=== PATIENT | female | born 1995 | race Caucasian/White ===

== ENCOUNTER 2019-02-01 16:39 | Inpatient (IN) | payer BC ==
[2019-02-01] MEDS ORDERED: Zolpidem Tartrate 5 MG TAB PO PRN (17:57)
[2019-02-01] MEDS ORDERED: HYDROcodone/Acetaminophen 5/325 mg Tablet PO PRN ×2 (17:57)
[2019-02-01] MEDS ORDERED: Butorphanol Tartrate 1 MG/ML VIAL SLOW IVP PRN (17:57)
[2019-02-01] MEDS ORDERED: Promethazine HCl 25 MG/ML VIAL IM PRN (17:57)
[2019-02-01] MEDS ORDERED: Acetaminophen 500 MG TAB PO PRN (17:57)
[2019-02-01] MEDS ORDERED: Meperidine HCl/PF 25 MG/ML VIAL IM/IV PRN (17:57)
[2019-02-01] MEDS ORDERED: Ondansetron PF 4 MG/2 ML Vial IVP PRN (17:57)
[2019-02-01] MEDS ORDERED: NS / Oxytocin 40 units/1000ml 1,000 ML IV PRN (17:57)
[2019-02-01] MEDS ORDERED: Ibuprofen 800 MG TAB PO PRN (17:57)
[2019-02-01] MEDS ORDERED: Lidocaine 1% (PF) 30 ML VIAL SC PRN (17:57)
--- NOTE | 2019-02-01 18:03 | PDOC.LDHP ---
Labor and Delivery H&P Chief complaint: contractions HPI: 23 yo WF G1 presents c/o regular UCs since 2am. Denies bleeding or SROM. Current gestational age (weeks): 41 Due date: 01/24/19 Dating criteria: last menstrual period Grav: 1 Para: 0 OB History Details: PNC with Allie Tapia w/o complications Current complications: none Abnormal US findings: No Past Medical History: none Current medications: pre-nilda vitamins Previous surgical history: none Allergies/Adverse Reactions: Allergies Allergy/AdvReac Type Severity Reaction Status Date / Time No Known Allergies Allergy Verified 02/01/19 17:27 Social history: none - Physical Exam Vital signs reviewed and normal: yes General: breathing through contractions Heart: RRR Lungs: CTAB Abdomen: gravid Extremeties: trace edema FHT: category 1 Fuig contractions every: UCs q 2-4 mins. - Vaginal Exam cm dilated: 2 Effacement: 75% Station: -1 - OB Labs GBS: negative - Assessment L&D Assessment: term patient in labor - Plan Plan: admit to L&D, informed consent obtained (wants low intervention. Allie Tapia notified of admit)
[2019-02-01 18:41] LABS: Mean Corpuscular HGB CONC 32.9 g/dL (32.0-36.0); Mean Corpuscular Hemoglobin 28.1 pg (27.0-31.0); Mean Corpuscular Volume 85.3 fL (78.0-98.0); Platelet Count 190 thou/uL (130-400); Red Blood Cell (RBC) Count 4.29 mill/uL (4.20-5.40); White Blood Cell (WBC) Count 11.7 thou/uL (4.8-10.8)
[2019-02-01] MEDS: Lactated Ringer's 1,000 ML IV SCH (19:00)
[2019-02-01] MEDS ORDERED: Bupivacaine/Epinephrine 0.25% 30 ML VIAL ONE (19:22)
[2019-02-01 19:23] LABS: HBSAg Index 0.36 S/CO (0-0.99); Hep B Surf Ag Non-Reactive S/CO (NonReactive); Syphilis Antibody Nonreactive (Nonreactive); Syphilis Antibody Index 0.04 S/CO (<1.00 Non-Reactive)
[2019-02-01 20:07] VITALS: BMI 27.5
[2019-02-01] MEDS ORDERED: Fentanyl 4 mcg/Bup 0.1% Cadd 100 ML ONE (23:44)
[2019-02-02] MEDS: Lactated Ringer's 1,000 ML IV SCH (00:05)
[2019-02-02] MEDS ORDERED: Promethazine HCl 25 MG/ML VIAL IM PRN (00:19)
[2019-02-02] MEDS ORDERED: Ondansetron PF 4 MG/2 ML Vial IVP PRN ×2 (00:19→10:12)
[2019-02-02] MEDS ORDERED: ePHEDrine/0.9% NaCl/PF SYRINGE 50 mg/10 ml SLOW IVP PRN (00:19)
[2019-02-02] MEDS ORDERED: Naloxone HCl 0.4 mg/ml Vial IVP PRN ×2 (00:19)
[2019-02-02] MEDS ORDERED: Acetaminophen 325 MG TAB PO PRN (00:19)
[2019-02-02] MEDS ORDERED: diphenhydrAMINE 50 MG/ML VIAL IVP PRN (00:19)
[2019-02-02] MEDS ORDERED: Lactated Ringer's 500 ML IV PRN (00:19)
[2019-02-02] MEDS ORDERED: Fentanyl 4 mcg/Bupivacaine 0.1% Cassette 100 ML EPIDURAL SCH (00:30)
[2019-02-02] MEDS ORDERED: Communication Order-Pharmacy FS SCH (00:30)
[2019-02-02] MEDS ORDERED: Terbutaline Sulfate 1 MG/ML VIAL SC SCH (04:05)
[2019-02-02] MEDS ORDERED: Terbutaline Sulfate 1 MG/ML VIAL ONE (04:07)
--- NOTE | 2019-02-02 05:52 | PDOC.LDPN ---
Labor & Delivery Progress Note - Subjective Subjective: comfortable - Objective Abnormal vital signs: Temp 100.1, 111bpm after terbutaline General: resting Uterine fundus: non tender Dilation: 7 Effacement: 100% Station: -1 FHT: category 2 - Assessment (1) 41 weeks gestation of Code(s): Z3A.41 - 41 WEEKS GESTATION OF Current Visit: Yes Status : Acute (2) Primigravida Code(s): Z34.00 - ENCNTR FOR SUPRVSN OF NORMAL FIRST , UNSP TRIMESTER Current Visit: Yes Status: Acute -: RN called at 0400 to review strip from home. Recurrent late decels noted. Verbal order to give 0.25 SQ terbutaline. Arrived to hospital at 0430. status is improved, 140 baseline, moderate variability, + Accels. Proceeded with position changes used to encourage rotation and decent. Will recheck cervix at 0700 or as indicated.
[2019-02-02] MEDS ORDERED: NS w/ Oxytocin 10 units 500 ML IV SCH (07:15)
[2019-02-02] MEDS ORDERED: Fentanyl 4 mcg/Bup 0.1% Cadd 100 ML ONE (07:23)
[2019-02-02] MEDS ORDERED: NS / Oxytocin 40 units/1000ml 1,000 ML ONE (08:52)
[2019-02-02] MEDS ORDERED: Lidocaine 1% (PF) 30 ML VIAL ONE (08:52)
[2019-02-02 09:40] LABS: Actual Bicarbonate (HCO3a) 23.6 mEq/L (22-28); Base Excess (BEa) -7.8 mEq/L (-2.0 to +3.0)
--- NOTE | 2019-02-02 10:02 | PDOC.OPDEL ---
OB Operative/Delivery Note Delivery Dr/Surgeon: Mike Tapia CNM Assist: Dr. May at bedside Pre-Delivery Diagnosis: active labor, other (41 weks gestation catergory 2 heart rate tracing) Procedure/Post Delivery Dx: spontaneous vaginal delivery Weeks gestation: 41 Anesthesia: epidural - Findings A Sex: female Weight: 7 lb 5 oz - 1 min: 8 - 5 min: 9 - Additional Findings/Plan Placenta delivered: spontaneous Repaired Obstetrical Laceration: 2nd degree Estimated blood loss: 250mL see nurse note for QBL Compilations/Other Findings: Deep variable decels prior to delivery. NICU at bedside, OB hospitalist at bedside compound delivery 2nd laceration Cord gas collected. 7.115pH arterial. Post delivery plan: routine recovery
[2019-02-02] MEDS ORDERED: Milk Of Magnesia 30 ML UDCUP PO PRN (10:12)
[2019-02-02] MEDS ORDERED: HYDROcodone/Acetaminophen 5/325 mg Tablet PO PRN ×2 (10:12)
[2019-02-02] MEDS ORDERED: Misoprostol 200 MCG TAB VAG PRN (10:12)
[2019-02-02] MEDS ORDERED: Benzocaine-Menthol 82.5 ML CAN TOP PRN (10:12)
[2019-02-02] MEDS ORDERED: Methylergonovine 0.2 MG/ML VIAL IM PRN (10:12)
[2019-02-02] MEDS ORDERED: Bisacodyl 10 MG SUPP PR PRN (10:12)
[2019-02-02] MEDS ORDERED: NS / Oxytocin 40 units/1000ml 1,000 ML IV SCH (10:12)
[2019-02-02] MEDS: Ibuprofen 800 MG TAB PO SCH ×2 (13:50→21:34)
[2019-02-02] MEDS: Ferrous Sulfate 325 MG TAB PO SCH (15:19)
[2019-02-02] MEDS: Docusate Calcium (SURFAK) 240 MG CAP PO SCH (21:34)
[2019-02-03] MEDS: Ibuprofen 800 MG TAB PO SCH ×2 (05:07→08:36)
[2019-02-03 06:08] LABS: Mean Corpuscular HGB CONC 32.7 g/dL (32.0-36.0); Mean Corpuscular Hemoglobin 28.5 pg (27.0-31.0); Mean Corpuscular Volume 87.1 fL (78.0-98.0); Mean Platelet Volume 8.1 fL (7.4-10.4); Platelet Count 186 thou/uL (130-400); RBC Distribution Width 18.2 % (11.5-14.5); Red Blood Cell (RBC) Count 3.86 mill/uL (4.20-5.40); White Blood Cell (WBC) Count 10.3 thou/uL (4.8-10.8)
[2019-02-03 08:22] VITALS: BP 108/59; TEMP 97.9
[2019-02-03] MEDS: Docusate Calcium (SURFAK) 240 MG CAP PO SCH (08:36)
[2019-02-03] MEDS: Ferrous Sulfate 325 MG TAB PO SCH (08:38)
--- NOTE | 2019-02-03 08:43 | PDOC.PP ---
Post Progress Note Post Day #: 1 Subjective: would like to discharge home today if possible. She is worried about the stitches and having a bowel movement. Feeding was difficult yesterday, but she is getting better. PO intake tolerated: yes Flatus: yes Ambulation: yes Vital Signs (12 hours) Temp Pulse Resp BP BP Pulse Ox 02/03/19 08:21 97.9 F 57 L 20 108/59 L 99 02/03/19 05:10 97.6 F 62 16 90/52 L 02/02/19 23:50 97.7 F 83 16 108/66 02/02/19 21:30 97.6 F 71 16 93/51 L 99 Weight Weight 165 lb 5.547 oz - Physical Examination General: NAD Cardiovascular: no m/r/g Respiratory: non-labored breathing Abdominal: lochia (minimal) Extremities: negative homans (B) Skin: no rash Neurological: no gross focal deficits Psychiatric: A&Ox3, normal affect Result Diagrams: 02/03/19 05:34 Additional Labs: Post Labs Blood Type A POSITIVE 02/01/19 19:06 Hep Bs Antigen Non-Reactive S/CO (NonReactive) 02/01/19 18:26 (1) 41 weeks gestation of Code(s): Z3A.41 - 41 WEEKS GESTATION OF Status: Acute (2) Primigravida Code(s): Z34.00 - ENCNTR FOR SUPRVSN OF NORMAL FIRST , UNSP TRIMESTER Status: Acute - Assessment/Plan A: G1 now p1 s/p with 2nd degree P: routine care IBCLC consult discharge home tomorrow if discharge.
[2019-02-03] MEDS ORDERED: Measles/Mumps/Rubella 10 MCG/0.5 ML VIAL SC ONE (09:00)
[2019-02-03] MEDS ORDERED: Adacel (T-DAP) 0.5 ML SYRINGE IM ONE (09:00)
== END 2019-02-03 17:20 | disposition home or self-care (01) | DRG 807 ==
LOC: L&D/OP 16:39 → L&D 20:43 → 3SW 02-02 11:51
PROVIDERS: ADMIT Obstetrics & Gynecology; ATTEND Obstetrics & Gynecology
PROC: 10E0XZZ Delivery of Products of Conception, External Approach (ICD-10-PCS; principal; 2019-02-02)
PROC: 0KQM0ZZ Repair Perineum Muscle, Open Approach (ICD-10-PCS; 2019-02-02)
DX: O48.0 Post-term pregnancy (principal); Z37.0 Single live birth; Z3A.41 41 weeks gestation of pregnancy; O70.1 Second degree perineal laceration during delivery
CPT/HCPCS: 36415; 51702; 82805; 85027; 86780; 86850; 86900; 86901; 87340; 88307; 99282; 99285; J2001; J2590; J3105